=== PATIENT | female | born 1990 | race Caucasian/White ===

== ENCOUNTER 2025-04-20 05:57 | Inpatient (IN) ==
[2025-04-20] MEDS ORDERED: CALCIUM CARBONATE 500 MG CHEWABLE TAB PO PRN (11:08)
[2025-04-20] MEDS ORDERED: LIDOCAINE 1% LOCAL 20 ML VIAL INFIL PRN (11:08)
[2025-04-20] MEDS ORDERED: OXYTOCIN 30 UNITS/NSS 30 UNITS/500 ML BAG IV PRN (11:08)
[2025-04-20] MEDS: LACTATED RINGER'S 1,000 ML IV PRN (11:19)
--- NOTE | 2025-04-20 11:20 | History & Physical Report ---
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 Her is complicated by GDM, GBS+, and CF carrier. Having contractions every 5-7 minutes; adequate movement; no fluid loss; no bloody show External FHT and external uterine monitors used; Category 1 tracing; FHT 140bpm with moderate variability, accelerations not appreciated, decelerations absent Had regular appointments with OB. Labs: Initial OB Labs 09/15/24 Blood Type & RH A positive Antibody Screen HCT/HGB 42.7/13.9 Platelets 322 Hep C IgG 13yrs+ Old non-reactive Pap Test Chlamydia negative Gonorrhea negative Rubella Immune RPR non-reactive Urine Culture/Screen no growth HBsAg negative HIV non-reactive MCV 90 Ultrasound OB Labs: Hgb 12.1 g/dL (11.7-15.5) 02/01/25 Hct 35.7 % (35.0-45.0) 02/01/25 Treponema pallidum Ab Negative (Negative) 02/01/25 Glucose 1 Hr 50 gm 153 mg/dL (<135) H 02/01/25 GBS: Positive Other screens: cff-DNA: low risk Cystic Fibrosis: carrier SMA: negative Review of Systems : Denies fever, chills, sweats Denies shortness of breath, difficulty breathing, chest pain, palpitations, chest pressure. Denies breast pain. Denies dysuria. Denies headache or changes in vision. Allergies Allergy/AdvReac Type Severity Reaction Status Date / Time pollen extracts Allergy Verified 04/19/25 13:09 Home Medications Medication Instructions Recorded Confirmed Type cholecalciferol (vitamin D3) PO 11/29/24 04/19/25 History 21-iron fu-folic acid PO 11/29/24 04/19/25 History [ Complete] breast pump #1 ea 02/14/25 04/19/25 Rx acetone (urine) test (Ketone Urine #50 ea 03/02/25 04/19/25 Rx Test strips) blood sugar diagnostic (OneTouch #150 ea 03/02/25 04/19/25 Rx Verio test strips) lancets 33 gauge (OneTouch Delica #150 ea 03/02/25 04/19/25 Rx Plus Lancet) blood-glucose meter (OneTouch #1 ea 03/12/25 04/19/25 Rx Verio Flex Meter) Patient History Medical History Seasonal allergies Asthma History of chicken pox Vitamin D deficiency (09/14/24) Surgical History S/P wisdom tooth extraction Family History Grandmother (Maternal) Uterine cancer Mother Breast cancer Family/Other Breast cancer cousins Grandfather (Maternal) Myocardial infarction Grandmother (Paternal) Cancer of kidney Denies family history of Ovarian cancer Colorectal cancer Social History Smoking Status: Never smoker Do You Dip or Chew Tobacco: No; Hx Alcohol Use: No Hx Substance Use: No Preferred Language: Fijian Communication Ability: Effective High School Social Studies Tutor Required: No Beliefs That Will Affect Care: None marital status: marital status details: Chris Urbano (43) [phone] Current Living Situation: Spouse Current Living Situation Comment: lives with spouse, 2 step 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 Skin: warm, dry, intact Heart: S1/S2 heard, regular, no m/r/g Lungs: equal air entry bilaterally, no rales/rhonchi/wheezes Abd: Normoactive BS, soft, NT/ND, gravid uterus Ext: warm, no clubbing/cyanosis or edema Neuro: nonfocal, speech intact, no facial droop, moving all extremities on command : FHR category 1: baseline 140, moderate variability, accelerations not appreciated, decelerations absent, contractions every 5 minutes Results & Data Vital Signs (Past 12 Hours) Vital Signs Temp Pulse Resp BP 04/20/25 09:35 37 C 20 04/20/25 07:44 37.2 C 67 16 131/82 04/20/25 06:28 80 132/88 04/20/25 06:11 37.0 C 16 Supervising Physician Co-Signing Physician Notes Resident Physician Supervision Note: I interviewed and examined the patient. Discussed with Dr. Cole and agree with findings and plan as documented in the note. Any exceptions or clarifications are listed here: 34yo @ 39 10/10, labor, admit to L&D, PCN for GBS+, hourly glucose checks. Documented By: Liz Munguia, Resident Activity Tracking Resident Involvement: Resident Care Provided Care Provided: OB Delivery
[2025-04-20 11:40] LABS: Hematocrit (blood only) 39.4 % (37.0-47.0); Hemoglobin 13.5 g/dl (12.0-16.0); Mean Corpuscular Hemoglobin 30.0 pg (25.0-34.0); Mean Corpuscular Volume 87.6 fL (80.0-100.0); Platelet Count 245 K/uL (130-400); RDW Standard Deviation 43.7 fL (36.4-46.3); Red Blood Count 4.50 M/uL (4.20-5.40); White Blood Count 9.59 K/ul (4.8-10.8)
[2025-04-20] MEDS: PENICILLIN GK 6 MU in DEXTROSE 5% 250 ML IV STA (11:47)
[2025-04-20] MEDS ORDERED: NALOXONE HCL 1 MG in SODIUM CHLORIDE 0.9% 1,000 ML IV PRN (13:47)
[2025-04-20] MEDS ORDERED: ROPIVACAINE 0.5% PF 5 MG/ML 20 ML VIAL EPI PRN (13:47)
[2025-04-20] MEDS ORDERED: LIDOCAINE 2% MPF LOCAL 5 ML VIAL EPI PRN (13:47)
[2025-04-20] MEDS ORDERED: NALOXONE HCL 0.4 MG/1 ML VIAL/CARP IV PRN (13:47)
[2025-04-20] MEDS ORDERED: diphenhydrAMINE 50 MG/ML VIAL IV PRN (13:47)
[2025-04-20] MEDS ORDERED: NALBUPHINE HCL INJ 10 MG/ML AMP IV PRN (13:47)
[2025-04-20] MEDS ORDERED: BUPIVACAINE 0.25% PF 30 ML VIAL EPI PRN (13:47)
[2025-04-20] MEDS ORDERED: SODIUM CHLORIDE 0.9% PF INJ 10 ML VIAL EPI PRN (13:47)
--- NOTE | 2025-04-20 13:47 | Anesthesiology Consultation ---
Date of Service April 20, 2025 Assessment & Plan ASA ASA2 Proposed Anesthesia Anesthesia Type: Labor Epidural Risk / Benefits Reviewed With: PT / POA / Parent / Guardian, Accepts Plan and Informed Consent Obtained History Height/Weight Height: 5 ft 5 in Weight: 76.657 kg Allergies Allergy/AdvReac Type Severity Reaction Status Date / Time pollen extracts Allergy Verified 04/19/25 13:09 Medications Home Medications Medication Instructions Recorded Confirmed Last Taken cholecalciferol (vitamin D3) PO 11/29/24 04/19/25 04/14/25 08:00 21-iron fu-folic acid PO 11/29/24 04/19/25 04/19/25 20:00 [ Complete] breast pump #1 ea 02/14/25 04/19/25 Unknown acetone (urine) test (Ketone Urine #50 ea 03/02/25 04/19/25 Unknown Test strips) blood sugar diagnostic (OneTouch #150 ea 03/02/25 04/19/25 Unknown Verio test strips) lancets 33 gauge (OneTouch Delica #150 ea 03/02/25 04/19/25 Unknown Plus Lancet) blood-glucose meter (OneTouch #1 ea 03/12/25 04/19/25 Unknown Verio Flex Meter) Active Medications Generic Name Dose Route Start Last Admin Trade Name Freq PRN Reason Stop Dose Admin Lactated Ringer's 1,000 mls @ 125 mls/hr 04/20/25 11:08 04/20/25 14:13 Lr IV 04/22/25 11:07 125 mls/hr .Q8H PRN Infusion L&D Protocol Protocol Past Medical History Medical History Seasonal allergies Asthma History of chicken pox Vitamin D deficiency (09/14/24) Exercise / Class Metabolic Activity II 4-5 Yardwork/Stairs/Walk up hill Past Family History Family History Grandmother (Maternal) Uterine cancer Mother Breast cancer Family/Other Breast cancer cousins Grandfather (Maternal) Myocardial infarction Grandmother (Paternal) Cancer of kidney Denies family history of Ovarian cancer Colorectal cancer Past Surgical History Surgical History S/P wisdom tooth extraction Past Anesthesia History No Hx of Anesthesia Complications and No Family Hx of Anesthesia Complications History of PONV No Hx of PONV and No Hx of Motion Sickness Social History Smoking Status: Never smoker Do You Dip or Chew Tobacco: No Hx Alcohol Use: No Hx Substance Use: No Review of Systems denies fever/cough/ colds/ chest pain/ SOB/ JULIANA denies JULIANA Physical Exam Vital Signs Last Vital Signs Temp 36.5 C 04/20/25 13:50 Pulse 72 04/20/25 14:28 Resp 20 04/20/25 13:50 BP 122/69 04/20/25 14:28 Pulse Ox 100 04/20/25 14:27 ENMT Mouth: no TMJ abnormality and no dentition abnormality Thyromental Distance: > or= 3.5 Finger Breadths Mallampati Class: II Neck neck extension not limited Respiratory normal respiratory effort; no respiratory distress Auscultation: lungs clear to auscultation bilaterally Cardiovascular Rate/Rhythm: regular rate and regular rhythm Neurologic moves all extremities Psychiatric Orientation: alert and oriented x 3 Testing Laboratory Results 04/20/25 11:22
[2025-04-20] MEDS: LIDOCAINE 2%/EPINEPHRINE 1:200,000 20 ML PF ONE (14:05)
[2025-04-20] MEDS: fentANYL 2 MCG/ML BUPIVacaine 0.125%-NSS 100ML BAG ONE (14:14)
[2025-04-20] MEDS: SODIUM CHLORIDE 0.9% PF INJ 10 ML VIAL ONE (14:28)
[2025-04-20] MEDS: BUPIVACAINE 0.25% PF 30 ML VIAL ONE (14:28)
[2025-04-20] MEDS: PENICILLIN GK 3 MU in DEXTROSE 5% 100 ML IV PRN (15:33)
--- NOTE | 2025-04-20 17:18 | Labor Progress Brief Note ---
Date of Service April 20, 2025 Subjective comfortable Assessment & Plan (1) Normal labor: Plan arom done, continue management. Fetus overall reassuring. anticipate . Admission and Anticipated Discharge Date Admission Date: April 20, 2025 Physical Exam Physical Exam: 7-8/100/-1 toco--q2-4min efm--130s with min to mod varability, +scalp stim, no decels arom--small clear. Results & Data Vital Signs (Past 12 Hours) Vital Signs Temp Pulse Resp BP Pulse Ox 04/20/25 17:12 87 100 04/20/25 17:07 72 100 04/20/25 17:02 71 100 04/20/25 17:00 71 117/68 04/20/25 16:57 77 100 04/20/25 16:52 72 100 04/20/25 16:47 71 04/20/25 16:46 77 116/71 04/20/25 16:42 72 100 04/20/25 16:37 76 100 04/20/25 16:32 71 100 04/20/25 16:30 71 16 114/67 04/20/25 16:27 72 100 04/20/25 16:22 71 100 04/20/25 16:17 69 100 04/20/25 16:16 71 117/68 04/20/25 16:12 68 100 04/20/25 16:07 69 100 04/20/25 16:02 73 100 04/20/25 16:00 72 120/76 04/20/25 15:57 75 100 04/20/25 15:56 37.4 C 20 04/20/25 15:52 80 100 04/20/25 15:49 86 91 04/20/25 15:47 88 96 04/20/25 15:46 77 124/77 04/20/25 15:42 80 100 04/20/25 15:37 80 100 04/20/25 15:32 83 100 04/20/25 15:30 76 123/76 04/20/25 15:27 76 100 04/20/25 15:22 82 100 04/20/25 15:17 82 100 04/20/25 15:16 76 118/73 04/20/25 15:12 81 100 04/20/25 15:07 84 100 04/20/25 15:02 84 100 04/20/25 15:01 78 112/59 L 04/20/25 14:57 79 100 04/20/25 14:52 78 100 04/20/25 14:47 77 100 04/20/25 14:45 80 131/77 04/20/25 14:42 78 100 04/20/25 14:37 84 99 04/20/25 14:32 70 100 04/20/25 14:30 77 122/71 04/20/25 14:28 72 122/69 04/20/25 14:27 72 100 04/20/25 14:26 76 122/73 04/20/25 14:24 74 124/72 04/20/25 14:22 100 04/20/25 14:22 74 04/20/25 14:22 73 126/69 04/20/25 14:20 75 123/73 04/20/25 14:18 75 120/72 04/20/25 14:17 76 100 04/20/25 14:16 75 122/71 04/20/25 14:14 81 119/71 04/20/25 14:12 100 04/20/25 14:12 76 04/20/25 14:12 78 117/72 04/20/25 14:10 72 118/75 04/20/25 14:08 68 131/78 04/20/25 14:07 71 100 04/20/25 14:06 79 131/81 04/20/25 14:02 74 100 04/20/25 13:57 86 100 04/20/25 13:50 36.5 C 70 20 126/82 04/20/25 11:51 37.3 C 72 20 133/86 04/20/25 09:35 37 C 20 04/20/25 07:44 37.2 C 67 16 131/82 04/20/25 06:28 80 132/88 04/20/25 06:11 37.0 C 16 Coding Level of Care Code None Diagnoses Normal labor O80; Z37.9
[2025-04-20] MEDS: fentANYL 2 MCG/ML BUPIVacaine 0.125%-NSS 100ML BAG EPI PRN (19:22)
[2025-04-20] MEDS: ONDANSETRON INJ 2 MG/ML 2 ML VIAL IV PRN (20:30)
[2025-04-21] MEDS: OXYTOCIN 30 UNITS/NSS 30 UNITS/500 ML BAG IV PRN (02:46)
--- NOTE | 2025-04-21 03:34 | Labor Progress Brief Note ---
Date of Service April 21, 2025 Subjective Has been pushing for 2h. FHT tachycardic, with moderate variability and +accelerations station +3 Good effort with pushing. Will continue pushing, anticipate . Assessment & Plan Admission and Anticipated Discharge Date Admission Date: April 20, 2025 Results & Data Vital Signs (Past 12 Hours) Vital Signs Temp Pulse Resp BP Pulse Ox O2 Del Method 04/21/25 03:31 86 120/63 04/21/25 03:27 92 H 97 04/21/25 03:22 92 H 97 04/21/25 03:17 90 98 04/21/25 03:16 123 H 94 04/21/25 03:12 98 H 98 04/21/25 03:11 88 123/68 04/21/25 03:09 96 H 91 04/21/25 03:07 98 H 98 04/21/25 03:02 92 H 100 04/21/25 03:00 94 H 92 04/21/25 02:57 88 83 L 04/21/25 02:53 94 H 90 04/21/25 02:52 94 H 100 04/21/25 02:47 101 H 85 L 04/21/25 02:46 100 H 130/73 04/21/25 02:42 92 H 100 04/21/25 02:41 89 92 04/21/25 02:37 101 H 100 04/21/25 02:35 105 H 91 04/21/25 02:32 107 H 100 04/21/25 02:31 88 126/71 04/21/25 02:30 97 H 134/60 04/21/25 02:29 93 H 89 L 04/21/25 02:27 107 H 100 04/21/25 02:24 100 H 89 L 04/21/25 02:22 92 H 100 04/21/25 02:17 100 04/21/25 02:17 105 H 04/21/25 02:17 106 H 81 L 04/21/25 02:15 88 128/67 04/21/25 02:12 88 100 04/21/25 02:09 98 H 94 04/21/25 02:07 90 100 04/21/25 02:02 90 100 04/21/25 02:00 84 132/67 04/21/25 01:57 88 100 04/21/25 01:56 106 H 92 07/19/25 01:52 96 H 90 04/21/25 01:51 86 132/62 04/21/25 01:47 93 H 91 04/21/25 01:45 89 93 04/21/25 01:42 92 H 100 04/21/25 01:39 90 91 04/21/25 01:37 99 H 100 04/21/25 01:32 104 H 100 04/21/25 01:30 96 H 131/73 04/21/25 01:27 101 H 100 04/21/25 01:25 18 04/21/25 01:25 37.1 C 18 04/21/25 01:22 83 100 04/21/25 01:17 93 H 100 04/21/25 01:16 88 127/75 04/21/25 01:12 92 H 100 04/21/25 01:07 88 100 04/21/25 01:02 80 100 04/21/25 01:00 81 122/77 04/21/25 00:57 93 H 100 04/21/25 00:52 87 99 04/21/25 00:47 87 98 04/21/25 00:46 85 121/74 04/21/25 00:42 90 99 04/21/25 00:37 82 98 04/21/25 00:32 81 97 04/21/25 00:30 83 119/68 04/21/25 00:27 84 97 04/21/25 00:22 83 97 04/21/25 00:17 81 97 04/21/25 00:15 82 118/68 04/21/25 00:12 85 97 04/21/25 00:07 79 98 04/21/25 00:02 83 97 04/21/25 00:00 81 113/69 04/20/25 23:57 80 98 04/20/25 23:52 79 98 04/20/25 23:47 79 99 07 23:46 81 122/74 04/20/25 23:42 83 99 04/20/25 23:37 82 98 04/20/25 23:32 79 99 04/20/25 23:30 78 112/71 04/20/25 23:27 84 100 04/20/25 23:25 16 04/20/25 23:25 37.1 C 16 04/20/25 23:22 83 98 04/20/25 23:17 100 04/20/25 23:17 84 04/20/25 23:17 82 130/78 04/20/25 23:15 84 122/72 04/20/25 23:12 93 H 100 04/20/25 23:07 81 98 04/20/25 23:02 86 98 04/20/25 23:00 89 110/65 04/20/25 22:57 83 98 04/20/25 22:52 85 97 04/20/25 22:47 81 97 04/20/25 22:46 86 118/66 04/20/25 22:42 81 97 04/20/25 22:37 79 97 04/20/25 22:32 75 97 04/20/25 22:31 75 115/73 04/20/25 22:27 77 99 04/20/25 22:22 77 99 04/20/25 22:17 75 100 04/20/25 22:15 78 127/74 04/20/25 22:12 79 100 04/20/25 22:07 76 100 04/20/25 22:02 78 100 04/20/25 22:00 77 129/72 04/20/25 21:57 88 99 04/20/25 21:54 18 04/20/25 21:54 36.9 C 18 04/20/25 21:52 88 100 04/20/25 21:50 77 127/83 04/20/25 21:47 83 99 04/20/25 21:42 84 100 04/20/25 21:37 74 99 04/20/25 21:32 76 97 04/20/25 21:30 78 112/60 04/20/25 21:27 73 99 04/20/25 21:22 77 100 04/20/25 21:17 75 98 04/20/25 21:15 75 118/67 04/20/25 21:12 78 99 04/20/25 21:07 79 100 04/20/25 21:02 85 115/67 100 04/20/25 20:57 74 98 04/20/25 20:52 75 98 04/20/25 20:47 72 100 04/20/25 20:45 71 113/59 L 04/20/25 20:42 76 100 04/20/25 20:37 79 100 04/20/25 20:32 77 100 04/20/25 20:31 76 110/64 04/20/25 20:27 84 100 04/20/25 20:22 77 100 04/20/25 20:21 80 93 04/20/25 20:17 76 99 04/20/25 20:15 80 119/63 04/20/25 20:12 79 100 04/20/25 20:07 76 100 04/20/25 20:02 76 100 04/20/25 20:00 74 116/58 L 04/20/25 19:57 76 100 04/20/25 19:52 74 100 04/20/25 19:47 76 100 04/20/25 19:46 80 127/78 04/20/25 19:42 76 100 04/20/25 19:37 76 100 04/20/25 19:32 77 100 04/20/25 19:31 81 124/85 04/20/25 19:30 78 93 04/20/25 19:27 82 100 04/20/25 19:23 105 H 93 04/20/25 19:22 79 100 04/20/25 19:17 80 100 04/20/25 19:15 Room Air 04/20/25 19:15 80 131/73 04/20/25 19:12 84 99 04/20/25 19:10 18 04/20/25 19:10 18 04/20/25 19:07 83 99 04/20/25 19:02 80 100 04/20/25 19:01 77 121/69 04/20/25 18:57 82 100 04/20/25 18:52 78 100 04/20/25 18:47 78 100 04/20/25 18:46 71 121/73 04/20/25 18:42 74 100 04/20/25 18:37 80 100 04/20/25 18:32 74 100 04/20/25 18:30 37.1 C 76 20 123/75 04/20/25 18:28 89 90 04/20/25 18:27 92 H 95 04/20/25 18:22 75 100 04/20/25 18:17 78 100 04/20/25 18:15 79 126/78 04/20/25 18:12 83 100 04/20/25 18:07 86 100 04/20/25 18:02 78 100 04/20/25 18:00 81 124/70 04/20/25 17:57 82 100 04/20/25 17:52 78 100 04/20/25 17:47 80 128/76 100 04/20/25 17:42 83 100 04/20/25 17:37 77 100 04/20/25 17:32 100 04/20/25 17:32 80 04/20/25 17:32 75 125/77 04/20/25 17:27 84 100 04/20/25 17:22 80 100 04/20/25 17:17 83 100 04/20/25 17:16 36.6 C 114 H 20 118/82 04/20/25 17:12 87 100 04/20/25 17:07 72 100 04/20/25 17:02 71 100 04/20/25 17:00 71 117/68 04/20/25 16:57 77 100 04/20/25 16:52 72 100 04/20/25 16:47 71 100 04/20/25 16:46 77 116/71 04/20/25 16:42 72 100 04/20/25 16:37 76 100 04/20/25 16:32 71 100 04/20/25 16:30 71 16 114/67 04/20/25 16:27 72 100 04/20/25 16:22 71 100 04/20/25 16:17 69 100 04/20/25 16:16 71 117/68 04/20/25 16:12 68 100 04/20/25 16:07 69 100 04/20/25 16:02 73 100 04/20/25 16:00 72 120/76 04/20/25 15:57 75 100 04/20/25 15:56 37.4 C 20 04/20/25 15:52 80 100 04/20/25 15:49 86 91 04/20/25 15:47 88 96 04/20/25 15:46 77 124/77 04/20/25 15:42 80 100 04/20/25 15:37 80 100 Coding Level of Care Code None
--- NOTE | 2025-04-21 05:31 | History & Physical Bridge Note ---
Date of Service April 21, 2025 History & Physical Bridge Note I have examined the patient, reviewed the History & Physical and in the interval since the performance of the History & Physical I have noted the following changes of clinical significance: no changes noted Patient has been pushing for 4h, station remains at 3+. FHT tachycardic. Discussed delivery by section - would not recommend vacuum d/t suspicion of large baby. Consent reviewed, patient agreeable to section. Will proceed to OR for failure to descend.
[2025-04-21] MEDS ORDERED: HYDROmorphone INJ 0.5 MG/0.5 ML SYR IV PRN ×2 (05:35→23:35)
[2025-04-21] MEDS ORDERED: NALOXONE HCL 0.08 MG in SYRINGE 1.8 ML IV PRN (05:35)
[2025-04-21] MEDS ORDERED: LACTATED RINGER'S 500 ML IV PRN (05:35)
[2025-04-21] MEDS ORDERED: diphenhydrAMINE 50 MG/ML VIAL IV PRN ×2 (05:35→23:35)
[2025-04-21] MEDS ORDERED: MoRPHine SULFATE 2 MG/ML CARP IV PRN (05:35)
[2025-04-21] MEDS ORDERED: NALOXONE HCL 0.4 MG/1 ML VIAL/CARP IV PRN (05:35)
[2025-04-21] MEDS ORDERED: NALBUPHINE HCL INJ 10 MG/ML AMP IV PRN (05:35)
[2025-04-21] MEDS ORDERED: ONDANSETRON INJ 2 MG/ML 2 ML VIAL IV PRN ×2 (05:35→23:36)
[2025-04-21] MEDS ORDERED: NALOXONE HCL 1 MG in SODIUM CHLORIDE 0.9% 1,000 ML IV PRN (05:35)
[2025-04-21] MEDS: CITRIC ACID/SODIUM CITRATE 15 ML UDC PO SCH (05:36)
[2025-04-21] MEDS ORDERED: PHENYLEPHRINE HCL 25 MG/250 ML NSS IV ONE (05:37)
[2025-04-21] MEDS ORDERED: DEXAMETHASONE SOD INJ 4 MG/ML VIAL ONE (05:37)
[2025-04-21] MEDS ORDERED: ONDANSETRON INJ 2 MG/ML 2 ML VIAL ONE (05:37)
[2025-04-21] MEDS ORDERED: MoRPHine SULFATE PF 1 MG/ML 10 ML AMP/VIAL ONE (05:37)
[2025-04-21] MEDS ORDERED: OXYTOCIN 10 UNITS/ML VIAL ONE (05:37)
[2025-04-21] MEDS ORDERED: LIDOCAINE 2%/EPINEPHRINE 1:200,000 20 ML PF ONE (05:37)
[2025-04-21] MEDS ORDERED: NO NARCOTICS OR SEDATIVES SCH (05:45)
[2025-04-21] MEDS ORDERED: DC INTRASPINAL MORPHINE SCH (05:45)
[2025-04-21] MEDS ORDERED: ACETAMINOPHEN 500 MG TAB PO SCH (06:00)
[2025-04-21] MEDS ORDERED: AZITHROMYCIN 500 MG/255 ML BAG IV SCH (06:00)
[2025-04-21] MEDS ORDERED: CHLOROPROCAINE HCL 3% 20 ML VIAL ONE (06:37)
--- NOTE | 2025-04-21 07:10 | Operative Report ---
Post Operative Report Pre & Post Diagnosis Operation Date: 04/21/25 05:30 Pre-Op Diagnosis: failure to descend Post-Op Diagnosis: same as preop I identified the patient and participated in the time-out.: Yes Procedure Operation Date: 04/21/25 05:30 Actual Procedures p Primary Low Transverse Section in LD for the of a live female child at 0629 - Liz Munguia DO Surgeon Liz Munguia DO Certified Lactation Educator Bandar Neal MD Quantitative Blood Loss (QBL) 319 Findings Consistent with Post-Op Diagnosis Viable female , Apgars 6/8, weight 8#3oz. Specimens placenta, cord blood, cord gas Drains greenberg clear yellow Anesthesia Type Labor Epidural Complications none Disposition Accompanied Patient To Recovery: Yes Disposition: L&D Indications 34yo @ 39 2/7, spontaneous labor, progressed to complete dilation and pushed for 4 hours but unable to progress beyond 3+ station. Description of Procedure The patient was seen in her labor and delivery room, risks benefits and alternatives to surgery were reviewed. Informed consent obtained. Questions were answered. She was taken to the operating room, spinal anesthesia was administered. She was then prepared and draped in the usual sterile fashion in the supine position with a leftward tilt. Timeout was confirmed. A Pfannenstiel skin incision was made with a scalpel, and carried through to the underlying layer of fascia. Fascia was nicked at midline, and this incision was extended bilaterally. The superior aspect of the fascial incision was grasped with Sena clamps x2, elevated off the underlying rectus abdominis muscles, and dissected sharply and bluntly. In similar fashion, the inferior aspect of the fascial incision was dissected. The rectus abdominis muscles were , and the peritoneum was entered bluntly digitally. This was extended bilaterally. The bladder flap was taken down carefully using Metzenbaum scissors. Using a new scalpel, a low transverse uterine incision was created. Meconium stained fluid noted. The infant was delivered from a cephalic presentation. The head delivered, followed by shoulders and body. Spontaneous cry on the field. The cord was doubly clamped and cut, and the infant was handed off to the waiting dial polisher. A segment was retained for cord gases. Cord blood was obtained. The placenta was delivered spontaneously intact. The uterus was exteriorized, and cleared of all clots and debris. The hysterotomy incision was reapproximated using 0 Vicryl in a running locked stitch. Bilateral extensions of incision were reapproximated with 0-Vicryl for excellent hemostasis. A second layer of the same suture was used to imbricate the incision. Posterior uterus was evaluated and normal. The uterus was returned to the abdomen, and gutters were cleared of clots and debris. Gelfoam used at inferior rectus abdominus muscles. Excellent hemostasis was observed. The fascial incision was reapproximated using 0 Vicryl in a running stitch. The subcutaneous tissue was irrigated, and reapproximated using 2-0 plain gut in a running stitch. The skin was reapproximated using 4-0 Vicryl in a running subcuticular stitch. Steri-Strips and a bandage were applied. The patient tolerated the procedure well, and will be taken to the recovery area in stable and good condition. I attest to the content of the Intraoperative Record and any orders documented therein. Any exceptions are noted below. OB Procedure Charges 13526
[2025-04-21] MEDS: OXYTOCIN 20 UNITS/1002ML LR IV ONE (07:15)
--- NOTE | 2025-04-21 07:20 | Anesthesia Procedure Note ---
Date of Service April 21, 2025 Anesthesia Post Epidural Note Vital Signs Vital Signs: Temp Pulse Resp BP Pulse Ox O2 Del Method 37.8 C H 96 H 18 115/58 L 99 Room Air 04/21/25 03:32 04/21/25 07:19 04/21/25 01:25 04/21/25 07:09 04/21/25 07:19 04/20/25 19:15 Pain Intensity Abdomen: Pain Intensity: 3 Notes Mental Status: alert / awake / arousable and participated in evaluation Nausea / Vomiting: adequately controlled Pain: adequately controlled Airway Patency, RR, SpO2: stable & adequate BP & HR: stable & adequate Hydration State: stable & adequate Neuraxial Anesthesia: was administered and sensory block resolved Anesthetic Complications: no major complications apparent and Pt Satisfied with anesthetic care Epidural: Removed without complications and With tip intact
[2025-04-21 07:35] LABS: Base Excess Cord Arterial Bld -13.2 mEq/L (-9-1.8); CO2 Cord Arterial Blood 65 mmHg (39.1-73.5); HCO3 Cord Arterial Blood 18 mmol/L (19.7-28.5); PO2 Cord Arterial Blood 32 mmHg (4.1-31.7); pH Cord Arterial Blood 7.05 (7.1-7.38)
[2025-04-21 07:37] LABS: Base Excess Cord Venous Blood -8.4 mEq/L (-7.7-1.9); Cord Venous Blood PO2 22 mmHg (14.1-43.3); O2 Saturation Cord Venous Bld < 60.0 % (<68)
[2025-04-21] MEDS ORDERED: HYDROCORTISONE ACETATE 25 MG SUPP PR PRN (07:47)
[2025-04-21] MEDS ORDERED: CALCIUM CARBONATE 500 MG CHEWABLE TAB PO PRN (07:47)
[2025-04-21] MEDS ORDERED: SENNA 8.6 MG TAB PO PRN (07:47)
[2025-04-21] MEDS ORDERED: MAGNESIUM HYDROXIDE SUSP 30 ML UDC PO PRN (07:47)
[2025-04-21] MEDS ORDERED: BENZOCAINE 20% SPRY 85 APPLN/85 GM CAN EXT PRN (07:47)
[2025-04-21] MEDS: KETOROLAC 30 MG/ML VIAL IV SCH (08:07)
[2025-04-21] MEDS: SIMETHICONE 80 MG CHEW PO SCH (10:02)
[2025-04-21] MEDS: FERROUS SULFATE 325 MG TAB PO SCH (10:02)
[2025-04-21] MEDS: PRENATAL VITAMIN 1 TAB PO SCH (10:02)
[2025-04-21] MEDS: DOCUSATE SODIUM 100 MG CAP PO SCH (10:03)
[2025-04-21] MEDS: ACETAMINOPHEN 325 MG TAB PO SCH (13:46)
[2025-04-21] MEDS: OXYTOCIN 20 UNITS/LR 1,002 ML IV SCH (15:18)
[2025-04-21] MEDS: diphenhydrAMINE Capsule 25 MG CAP ONE (21:16)
[2025-04-21] MEDS ORDERED: diphenhydrAMINE Capsule 25 MG CAP PO PRN (23:35)
[2025-04-21] MEDS ORDERED: PROMETHAZINE 12.5 MG/50.5 ML BAG IV PRN (23:35)
[2025-04-22] MEDS ORDERED: KETOROLAC 30 MG/ML VIAL IV PRN (07:19)
[2025-04-22 07:21] LABS: Hematocrit (blood only) 34.0 % (37.0-47.0); Hemoglobin 11.2 g/dl (12.0-16.0); Immature Granulocytes # (auto) 0.15 K/uL (0.01-0.20); Immature Granulocytes % (auto) 1.1 %; Mean Corpuscular Hemoglobin 29.9 pg (25.0-34.0); Mean Corpuscular Volume 90.7 fL (80.0-100.0); Platelet Count 184 K/uL (130-400); RDW Standard Deviation 46.1 fL (36.4-46.3); Red Blood Count 3.75 M/uL (4.20-5.40); White Blood Count 13.39 K/ul (4.8-10.8)
[2025-04-22] MEDS: BUPIVACAINE 0.25% PF 30 ML VIAL EPI STA (07:22)
[2025-04-22] MEDS: LACTATED RINGER'S 1,000 ML IV SCH ×2 (07:23→07:24)
[2025-04-22] MEDS: LIDOCAINE 2%/EPINEPHRINE 1:200,000 20 ML PF EPI STA (07:23)
[2025-04-22] MEDS: MoRPHine SULFATE PF 1 MG/ML 10 ML AMP/VIAL EPI ONE (07:23)
[2025-04-22] MEDS: NURSING L&D Epidural Breakthrough Pain Update ONE (07:23)
[2025-04-22] MEDS: SODIUM CHLORIDE 0.9% PF INJ 10 ML VIAL EPI STA (07:23)
[2025-04-22] MEDS: SODIUM CHLORIDE 0.9% 1,000 ML IV SCH (07:24)
[2025-04-22] MEDS: DIPHTHER/TETAN/PERTUS Vaccine (Tdap, Adol/Adult) 0.5mL IM ONE (07:24)
--- NOTE | 2025-04-22 07:31 | Obstetrical Progress Note ---
Date of Service April 22, 2025 Assessment & Plan (1) care following delivery: Plan Overall doing well. Continue to monitor voiding. Routine care. Day #:: 1 Subjective Ambulation: limited ambulation Voiding: no voiding problems (continuing to monitor for complete emptying) Passing Gas:: Yes Diet Tolerance:: regular diet Lochia:: Small Feeding Type:: breast feeding Overall doing well. Pain controlled. Monitoring bladder Physical Exam Constitutional WD/WN, vitals as above Respiratory normal respiratory effort, lungs clear to auscultation Cardiovascular RRR, no murmur, no edema Extremities: no calf tenderness and no edema Gastrointestinal (Abdomen) soft, nt, nd, ff/nt at u incision c/d/i Psychiatric A+Ox3, euthymic affect Results & Data Vital Signs (Past 12 Hours) Vital Signs Temp Pulse Resp BP O2 Del Method 04/22/25 03:29 36.3 C L 65 111/73 Room Air 04/22/25 00:45 36.8 C 68 18 117/80 Room Air
[2025-04-22] MEDS: IBUPROFEN 600 MG TAB PO SCH (08:25)
[2025-04-22] MEDS ORDERED: Nursing to Pharmacy Communication SCH (16:00)
[2025-04-23 00:30] VITALS: O2SAT 99
--- NOTE | 2025-04-23 05:16 | Obstetrical Progress Note ---
Date of Service April 23, 2025 Assessment & Plan (1) care following delivery: Farhad Urbano is a 34 y/o post- day #2 s/p Fells well today. Vital signs stable Continue post- care Encourage ambulation and Pain controlled with ibuprofen Hgb stable Discharge home tomorrow, follow up with Dr. Munguia in 6 weeks. Admission and Anticipated Discharge Date Admission Date: April 20, 2025 Anticipated date of discharge: 04/24/25 Supervising Physician Co-Signing Physician Notes Resident Physician Supervision Note: I interviewed and examined the patient. Discussed with Dr. Bajwa and agree with findings and plan as documented in the note. Any exceptions or clarifications are listed here: Patient is pod/ppd 2. She is meeting all goals and is ready for d/c this evening. Instructions reviewed. Agree with note otherwise. Documented By: Laurita Neal MD, FACOG Subjective Coco Urbano is a 34 y/o post- day #2 s/p Ambulation: ambulating normally Voiding: no voiding problems Passing Gas:: Yes Diet Tolerance:: regular diet Lochia:: Small Feeding Type:: bottle feeding Current Pain Level: 4/10, well-controlled with current regimen Resting comfortably this AM in NAD. Denies NAVA, CP, SOB, N/V/D, LE pain/swelling. Review of Systems Review of Systems: All systems reviewed & are unremarkable except as noted in HPI & below Physical Exam Physical Exam: General: patient resting comfortably, NAD, non-toxic in appearance, AA&O x 4, answers questions appropriately. Skin: warm, dry, intact HEENT: NC/AT, anicteric sclera, conjunctiva without injection, moist mucus membranes. Heart: +S1/S2, regular, no m/r/g Lungs: equal air entry bilaterally, no rales/rhonchi/wheezes Abd: +BS, soft, NT/ND, uterine fundus firm at umbilicus, caesarean incision C/D/I. Ext: warm, no clubbing/cyanosis or edema, Balwinder's neg. Neuro: nonfocal, patient AA&O x 4, speech intact, no facial droop, moving all extremities on command. Constitutional: WD/WN, vitals as above Results & Data Vital Signs (Past 12 Hours) Vital Signs Temp Pulse Resp BP Pulse Ox O2 Del Method 04/23/25 00:10 36.6 C 71 18 118/79 99 Room Air 04/22/25 20:45 36.6 C 76 18 127/80 98 Room Air 04/22/25 20:45 Room Air
[2025-04-23 06:13] LABS: Hematocrit (blood only) 31.0 % (37.0-47.0); Hemoglobin 10.5 g/dl (12.0-16.0)
[2025-04-23] MEDS: IBUPROFEN 600 MG TAB PO PRN (09:28)
[2025-04-23 09:47] VITALS: BP 127/84; PULSE 69; RESP 16; TEMP 98.1
[2025-04-23] MEDS ORDERED: ACETAMINOPHEN 325 MG TAB PO PRN (13:19)
== END 2025-04-23 15:54 | disposition home or self-care (01) | DRG 788 ==
LOC: 4S1 05:57 → OPB 05:57 → 4S1 11:08 → 4E2 04-21 09:57